=== PATIENT | male | born 1965 | race Caucasian/White ===

== ENCOUNTER 2022-09-03 01:51 | Emergency (ER) | payer BC, OTHER ==
[~2022-09-03] VITALS: Ht 182.9 cm; Wt 84.1 kg
[~2022-09-03 01:51] MED LIST: DIPH-426 PO; PANT-47 PO
[2022-09-03 02:07] VITALS: BP 136/91
[2022-09-03] MEDS ORDERED: normal saline 1000ML IV soln IVB ONE (02:20)
[2022-09-03 02:25] LABS: BASOPHILS % (AUTO) 0.9 % (0-1); EOSINOPHILS # (AUTO) 0.2 X10'3 (0-0.9); EOSINOPHILS % (AUTO) 4.1 % (0-6); HEMATOCRIT 41.1 % (42.0-52.0); HEMOGLOBIN 13.8 g/dl (14.0-17.9); LYMPHOCYTES # (AUTO) 1.5 X10'3 (1.1-4.8); LYMPHOCYTES % (AUTO) 29.2 % (21-51); MEAN CORPUSCULAR HGB CONC 33.6 g/dL (33.0-36.5); MEAN CORPUSCULAR VOLUME 86.1 FL (78-98); MEAN PLATELET VOLUME 8.4 FL (7.4-10.4); MONOCYTES # (AUTO) 0.7 X10'3 (0-0.9); MONOCYTES % (AUTO) 14.3 % (2-12); NEUTROPHILS # (AUTO) 2.7 X10'3 (1.8-7.7); NEUTROPHILS % (AUTO) 51.5 % (42-75); PLATELET COUNT 189 X10'3 (140-440); RED BLOOD COUNT 4.77 X10'6 (4.70-6.10); RED CELL DISTRIBUTION WIDTH 13.2 % (11.5-14.5); WHITE BLOOD COUNT 5.2 X10'3 (4.5-11.0)
[2022-09-03 03:11] LABS: ALANINE AMINOTRANSFERASE 37 U/L (12-78); ALBUMIN 3.8 G/DL (3.4-5.0); ALBUMIN/GLOBULIN RATIO 1.2 (1.1-1.5); ALKALINE PHOSPHATASE 77 IU/L (46-116); ANION GAP 6 (8-16); ASPARTATE AMINO TRANSFERASE 25 U/L (10-37); BILIRUBIN,TOTAL 0.3 MG/DL (0.1-1.0); BLOOD UREA NITROGEN 22 MG/DL (7-18); BUN/CREATININE RATIO 20.8 (5.4-32.0); CALCIUM 9.2 MG/DL (8.5-10.1); CHLORIDE 102 MMOL/L (99-107); CREATININE 1.06 MG/DL (0.60-1.10); GLUCOSE 137 MG/DL (70-104); MAGNESIUM 2.2 MG/DL (1.5-2.4); POTASSIUM 3.5 MMOL/L (3.5-5.1); SODIUM 138 MMOL/L (135-145); TOTAL CARBON DIOXIDE 29.8 MMOL/L (24-32); eGFR 72 ML/MIN
== END 2022-09-03 04:50 | disposition home or self-care (01) ==
LOC: ER 01:52
DX: R00.2 Palpitations (principal); R07.89 Other chest pain; R42 Dizziness and giddiness; R53.1 Weakness; Z72.89 Other problems related to lifestyle; Z88.0 Allergy status to penicillin; Z88.5 Allergy status to narcotic agent; Z79.899 Other long term (current) drug therapy
CPT/HCPCS: 36415; 71045; 80053; 83735; 83880; 84484; 85025; 93005; 96360; 96361; 99285; J7030

== ENCOUNTER 2022-12-02 11:57 | Inpatient (IN) | payer OTHER ==
[~2022-12-02] VITALS: Ht 182.9 cm; Wt 90.9 kg
[2022-12-02] MEDS ORDERED: aspirin 81mg tab.chew PO ONE (12:05)
[2022-12-02 12:20] LABS: APTT 29 SECONDS (22-32); EOSINOPHILS # (AUTO) 0.1 X10'3 (0-0.9); EOSINOPHILS % (AUTO) 1.6 % (0-6); HEMOGLOBIN 14.2 g/dl (14.0-17.9); LYMPHOCYTES # (AUTO) 1.1 X10'3 (1.1-4.8); LYMPHOCYTES % (AUTO) 24.5 % (21-51); MEAN CORPUSCULAR HEMOGLOBIN 29.4 PG (27.0-31.0); MEAN CORPUSCULAR HGB CONC 33.9 g/dL (33.0-36.5); MEAN CORPUSCULAR VOLUME 86.8 FL (78-98); MEAN PLATELET VOLUME 8.4 FL (7.4-10.4); MONOCYTES # (AUTO) 0.5 X10'3 (0-0.9); MONOCYTES % (AUTO) 10.4 % (2-12); NEUTROPHILS # (AUTO) 2.9 X10'3 (1.8-7.7); NEUTROPHILS % (AUTO) 62.5 % (42-75); PLATELET COUNT 205 X10'3 (140-440); RED BLOOD COUNT 4.84 X10'6 (4.70-6.10); RED CELL DISTRIBUTION WIDTH 12.8 % (11.5-14.5); WHITE BLOOD COUNT 4.6 X10'3 (4.5-11.0)
[2022-12-02 12:21] LABS: D-DIMER < 0.19 MG/L FEU (0-0.50)
[2022-12-02 12:22] LABS: ALANINE AMINOTRANSFERASE 23 U/L (12-78); ALBUMIN/GLOBULIN RATIO 1.2 (1.1-1.5); ALKALINE PHOSPHATASE 69 IU/L (46-116); ANION GAP 10 (8-16); ASPARTATE AMINO TRANSFERASE 14 U/L (10-37); BILIRUBIN,TOTAL 0.5 MG/DL (0.1-1.0); BLOOD UREA NITROGEN 16 MG/DL (7-18); BUN/CREATININE RATIO 18.2 (10.0-20.0); CALCIUM 8.9 MG/DL (8.5-10.1); CHLORIDE 104 MMOL/L (99-107); CREATININE 0.88 MG/DL (0.60-1.10); GLUCOSE 106 MG/DL (70-104); POTASSIUM 3.9 MMOL/L (3.5-5.1); SODIUM 140 MMOL/L (135-145); TOTAL CARBON DIOXIDE 26.3 MMOL/L (24-32); TOTAL PROTEIN 7.3 G/DL (6.4-8.2); eGFR 89 ML/MIN
--- NOTE | 2022-12-02 12:30 | NUR ---
I AGREE WITH THE ASSESSMENT PER SHADOW CLEMENT CANDELARIO.
[2022-12-02 12:31] LABS: LIPASE 79 U/L (73-393); MAGNESIUM 2.2 MG/DL (1.5-2.4)
[2022-12-02] MEDS ORDERED: aspirin 81mg tab.chew PO STA (15:08)
[2022-12-02] MEDS: normal saline 1000ml 1,000 ML IV SCH (15:10)
[2022-12-02] MEDS ORDERED: magnesium hydroxide 30ml (MOM) UD suspension PO PRN (15:10)
[2022-12-02] MEDS ORDERED: potassium Cl 40MEQ/1/2NS 520ml 520 ML IV PRN (15:10)
[2022-12-02] MEDS ORDERED: acetaminophen 650mg rectal suppository RC PRN (15:10)
[2022-12-02] MEDS ORDERED: magnesium 4gm in 100ml NS 100 ML IV PRN (15:10)
[2022-12-02] MEDS ORDERED: mag hydrox/Alum hydrox/simeth 30ml oral suspension PO PRN (15:10)
[2022-12-02] MEDS ORDERED: magnesium 2GM in 50ml NS 50 ML IV PRN (15:10)
[2022-12-02] MEDS ORDERED: potassium Cl 20 mEq SR tablet PO PRN ×2 (15:10)
[2022-12-02] MEDS ORDERED: acetaminophen 325mg tablet PO PRN ×2 (15:10)
[2022-12-02] MEDS ORDERED: bisacodyl 10mg suppository rectal RC PRN (15:10)
[2022-12-02] MEDS ORDERED: ondansetron/PF 4mg/2ml inj IV PRN (15:10)
[2022-12-02] MEDS ORDERED: PERFLUTREN PROTEIN-A MICROSPHR (Optison) 0.22 MG/ML 3ML VIAL IV ONE (15:10)
[2022-12-02] MEDS ORDERED: magnesium Cl slow-release 64mg tablet PO PRN (15:10)
[2022-12-02] MEDS ORDERED: diphenhydrAMINE 25mg capsule PO PRN (15:10)
[2022-12-02 16:45] LABS: HEMOGLOBIN A1C 5.9 % (4.5-6.2)
[2022-12-02] MEDS ORDERED: ATOR20TA66 PO (17:00)
[2022-12-02 18:20] LABS: CLARITY,URINE CLEAR (Clear); COLOR,URINE YELLOW (Yellow); GLUCOSE, URINE NEGATIVE (Neg); KETONES,URINE TRACE mg/dl (Neg); LEUKOCYTE ESTERASE ,URINE NEGATIVE (Neg); NITRITES, URINE NEGATIVE (Neg); OCCULT BLOOD,URINE NEGATIVE (Neg); PROTEIN,URINE NEGATIVE (Neg); UROBILINOGEN,URINE 0.2 E.U/dL (0.2-1.0)
[2022-12-02 18:25] LABS: UA COLLECTION TYPE VOIDED
[2022-12-02] MEDS: heparin, porcine 5000 units/ml vial SQ SCH (20:00)
[2022-12-02] MEDS: docusate sod 100mg capsule PO SCH (20:00)
[2022-12-02] MEDS: K and/or MAG REPLACEMENT MC SCH (20:00)
[2022-12-03] VITALS (15 sets, daily range): BP systolic 113–142; BP diastolic 60–82
[2022-12-03] MEDS: normal saline 1000ml 1,000 ML IV SCH ×2 (01:34→11:36)
[2022-12-03 03:59] LABS: BASOPHILS % (AUTO) 0.8 % (0-1); EOSINOPHILS # (AUTO) 0.1 X10'3 (0-0.9); HEMATOCRIT 39.8 % (42.0-52.0); HEMOGLOBIN 13.4 g/dl (14.0-17.9); LYMPHOCYTES # (AUTO) 1.2 X10'3 (1.1-4.8); LYMPHOCYTES % (AUTO) 21.5 % (21-51); MEAN CORPUSCULAR HEMOGLOBIN 29.3 PG (27.0-31.0); MEAN CORPUSCULAR HGB CONC 33.7 g/dL (33.0-36.5); MEAN PLATELET VOLUME 8.2 FL (7.4-10.4); MONOCYTES # (AUTO) 0.6 X10'3 (0-0.9); MONOCYTES % (AUTO) 11.6 % (2-12); NEUTROPHILS # (AUTO) 3.5 X10'3 (1.8-7.7); NEUTROPHILS % (AUTO) 64.1 % (42-75); PLATELET COUNT 177 X10'3 (140-440); RED BLOOD COUNT 4.57 X10'6 (4.70-6.10); RED CELL DISTRIBUTION WIDTH 12.9 % (11.5-14.5); WHITE BLOOD COUNT 5.4 X10'3 (4.5-11.0)
[2022-12-03 04:10] LABS: ALANINE AMINOTRANSFERASE 20 U/L (12-78); ALBUMIN 3.3 G/DL (3.4-5.0); ALBUMIN/GLOBULIN RATIO 1.1 (1.1-1.5); ALKALINE PHOSPHATASE 58 IU/L (46-116); ANION GAP 7 (8-16); ASPARTATE AMINO TRANSFERASE 12 U/L (10-37); BILIRUBIN,TOTAL 0.4 MG/DL (0.1-1.0); BLOOD UREA NITROGEN 14 MG/DL (7-18); BUN/CREATININE RATIO 15.2 (10.0-20.0); CALCIUM 8.4 MG/DL (8.5-10.1); CHLORIDE 109 MMOL/L (99-107); CHOL/HDL RATIO 3.4 (0.00-4.99); CHOLESTEROL 137 MG/DL (0-200); CREATININE 0.92 MG/DL (0.60-1.10); GLUCOSE 113 MG/DL (70-104); HDL CHOLESTEROL 40 MG/DL (35-60); LDL CHOLESTEROL 79 MG/DL (50-100); MAGNESIUM 2.2 MG/DL (1.5-2.4); PHOSPHORUS 3.2 MG/DL (2.3-4.5); POTASSIUM 4.1 MMOL/L (3.5-5.1); SODIUM 143 MMOL/L (135-145); TOTAL CARBON DIOXIDE 27.4 MMOL/L (24-32); TOTAL PROTEIN 6.2 G/DL (6.4-8.2); TRIGLYCERIDES 55 MG/DL (20-135); eGFR 84 ML/MIN
[2022-12-03] MEDS: docusate sod 100mg capsule PO SCH (08:00)
[2022-12-03] MEDS ORDERED: atorvastatin 20mg tablet PO SCH (08:00)
[2022-12-03] MEDS ORDERED: aspirin 81mg, enteric-coated 1 TAB TABLET.DR PO SCH (08:00)
[2022-12-03] MEDS: K and/or MAG REPLACEMENT MC SCH (08:00)
--- NOTE | 2022-12-03 08:33 | NUR ---
Page Accepted promotional table spacer Message: [id number] Maynor. Patient came into ED with Chest pain. your notes mention a milo scan but there is no order for it. Patient has been NPO. Please advise. Jennifer @[id number] Custom Responses: promotional table spacer Transaction number: [id number]
[2022-12-03] MEDS: heparin, porcine 5000 units/ml vial SQ SCH (08:38)
--- NOTE | 2022-12-03 10:08 | NUR ---
Patient went to milo scan
[2022-12-03] MEDS ORDERED: aminophylline inj. 10 ML IV ONE (10:34)
[2022-12-03] MEDS ORDERED: regadenoson 0.4mg/5ml syringe IV ONE (10:35)
[2022-12-03] MEDS ORDERED: aminophylline 500mg/20ml vial IV ONE (10:55)
--- NOTE | 2022-12-03 14:02 | NUR ---
Message: NELSON ON [email or web address], ZAY REPORT IS UP ON [id number], THX. Custom Responses: promotional table spacer Transaction number: [id number] CLOSE [X] SEND ANOTHER PAGE Thank you for visiting [facility] promotional table spacer
--- NOTE | 2022-12-03 14:08 | NUR ---
Page Accepted promotional table spacer Message: [id number] Stewartmely. Stress test is available in [employer]. Jennifer @[facility] Custom Responses: promotional table spacer Transaction number: [id number] CLOSE [X] SEND ANOTHER PAGE Thank you for visiting [facility] promotional table spacer
[2022-12-03] MEDS ORDERED: PANT40TA54 PO (14:11)
--- NOTE | 2022-12-03 14:42 | NUR ---
Patient was DC to home . RX were escripted to [facility] in [place] . PIV was removed with cannula intact. Warning s/s and DC instructions were reviewed with patient and family and all verbalized understanding. Patient and family walked themselves out. Patient was alert , oriented, and appropriate at time of DC.
== END 2022-12-03 14:40 | disposition home or self-care (01) | DRG 392 ==
LOC: ER 11:58 → ED HOLD 15:12 → EDBEDREQ 12-03 02:10 → PCU 3S 12-03 08:01
PROVIDERS: ADMIT Family Medicine; ATTEND Family Medicine
PROC: 4A02XM4 Measurement of Cardiac Total Activity, External Approach (ICD-10-PCS; principal; 2022-12-03)
PROC: 3E033HZ Introduction of Radioactive Substance into Peripheral Vein, Percutaneous Approach (ICD-10-PCS; 2022-12-03)
DX: K21.9 Gastro-esophageal reflux disease without esophagitis (principal); G47.30 Sleep apnea, unspecified; F10.90 Alcohol use, unspecified, uncomplicated; R00.1 Bradycardia, unspecified; Z88.0 Allergy status to penicillin; Z88.5 Allergy status to narcotic agent; Z82.49 Family history of ischemic heart disease and other diseases of the circulatory system; Z80.1 Family history of malignant neoplasm of trachea, bronchus and lung
CPT/HCPCS: 36415; 71045; 78452; 80053; 80061; 81003; 83036; 83690; 83735; 83880; 84100; 84443; 84484; 85025; 85379; 85610; 85730; 93306; 99285; A9500; G0378; J0280; J1644; J2785; J7030

== ENCOUNTER 2023-03-21 04:59 | Emergency (ER) | payer OTHER ==
[~2023-03-21] VITALS: Ht 182.9 cm; Wt 88.6 kg
[~2023-03-21 04:59] MED LIST changes: +ATOR20TA66 PO; -DIPH-426 PO; -PANT-47 PO; +PANT40TA54 PO
[2023-03-21 05:21] VITALS: TEMP 97.4
[2023-03-21 05:32] LABS: BASOPHILS # (AUTO) 0.1 X10'3 (0-0.2); BASOPHILS % (AUTO) 1.2 % (0-1); EOSINOPHILS # (AUTO) 0.2 X10'3 (0-0.9); HEMATOCRIT 41.4 % (42.0-52.0); HEMOGLOBIN 13.9 g/dl (14.0-17.9); LYMPHOCYTES # (AUTO) 1.1 X10'3 (1.1-4.8); LYMPHOCYTES % (AUTO) 22.2 % (21-51); MEAN CORPUSCULAR HEMOGLOBIN 29.2 PG (27.0-31.0); MEAN CORPUSCULAR HGB CONC 33.5 g/dL (33.0-36.5); MEAN CORPUSCULAR VOLUME 87.1 FL (78-98); MEAN PLATELET VOLUME 8.5 FL (7.4-10.4); MONOCYTES # (AUTO) 0.5 X10'3 (0-0.9); MONOCYTES % (AUTO) 11.1 % (2-12); NEUTROPHILS % (AUTO) 61.5 % (42-75); PLATELET COUNT 167 X10'3 (140-440); RED BLOOD COUNT 4.76 X10'6 (4.70-6.10); RED CELL DISTRIBUTION WIDTH 13.1 % (11.5-14.5)
[2023-03-21 05:45] LABS: ALANINE AMINOTRANSFERASE 23 U/L (12-78); ALBUMIN 3.8 G/DL (3.4-5.0); ALBUMIN/GLOBULIN RATIO 1.2 (1.1-1.5); ALKALINE PHOSPHATASE 66 IU/L (46-116); ANION GAP 9 (8-16); ASPARTATE AMINO TRANSFERASE 12 U/L (10-37); BILIRUBIN,TOTAL 0.4 MG/DL (0.1-1.0); BLOOD UREA NITROGEN 27 MG/DL (7-18); BUN/CREATININE RATIO 29.7 (10.0-20.0); CALCIUM 8.9 MG/DL (8.5-10.1); CHLORIDE 106 MMOL/L (99-107); CREATININE 0.91 MG/DL (0.60-1.10); GLUCOSE 135 MG/DL (70-104); POTASSIUM 3.6 MMOL/L (3.5-5.1); SODIUM 142 MMOL/L (135-145); eCRCL 96 ML/MIN; eGFR 85 ML/MIN
[2023-03-21 05:52] LABS: PRO BRAIN NATRIURETIC PEPTIDE 37 PG/ML (0-125)
[2023-03-21 08:22] VITALS: BP 115/69; PULSE 52; RESP 13; O2SAT 97
== END 2023-03-21 10:04 | disposition home or self-care (01) ==
LOC: ER 05:00
DX: R07.9 Chest pain, unspecified (principal); R00.0 Tachycardia, unspecified; R00.2 Palpitations; J45.909 Unspecified asthma, uncomplicated; Z88.0 Allergy status to penicillin; Z88.5 Allergy status to narcotic agent; Z91.018 Allergy to other foods; Z79.899 Other long term (current) drug therapy
CPT/HCPCS: 36415; 71045; 80053; 83880; 84484; 85025; 93005; 99285